=== PATIENT | female | born 1980 | race Caucasian/White ===

== ENCOUNTER 2018-09-07 07:34 | Inpatient (IN) | payer OTHER ==
[~2018-09-07] VITALS: Ht 162.6 cm; Wt 126.1 kg
[2018-09-07] VITALS (12 sets, daily range): BP systolic 102–152; BP diastolic 64–97
[~2018-09-07 07:34] MED LIST: Dexamethasone 4mg/ml vial IVP ONE; ceFAZolin sod 1 GM in NS 55 ML IVPB ONE
[2018-09-07] MEDS ORDERED: DULERA 200 MCG/13 GM IH (08:37)
[2018-09-07] MEDS ORDERED: ALBUTEROL SULF8.5 GM INH (08:37)
[2018-09-07] MEDS ORDERED: PREVACID30 MG ORAL (08:37)
[2018-09-07] MEDS ORDERED: Dexamethasone 20mg/5ml ONE (09:05)
[2018-09-07] MEDS ORDERED: LR 1000ml 1,000 ML IVLG SCH (09:18)
--- NOTE | 2018-09-07 09:24 | Pre-Procedure Note/Attestation ---
Pre-Procedure Note/Attestation Complete Prior to Procedure Planned Procedure: not applicable Procedure Narrative: C5-C6 ACDF Anterior Internal Plate Fixation Indications for Procedure Pre-Operative Diagnosis: Trauma radiculopathy HNP Attestation I attest that I discussed the nature of the procedure; its benefits; risks and complications; and alternatives (and the risks and benefits of such alternatives ), prior to the procedure, with the patient (or the patient's legal inside technical sales representative). I attest that, if there was a reasonable possibility of needing a blood transfusion, the patient (or the patient's legal inside technical sales representative) was given the [facility] standardized written summary, pursuant to the Tarik Nemo Blood Safety Act ([place] Health and Safety Code # 1645, as amended). I attest that I re-evaluated the patient just prior to the surgery and that there has been no change in the patient's H&P, except as documented below: Bala Ramsey MD Sep 07, 2018 09:24
[2018-09-07] MEDS ORDERED: Ketorolac 30mg Inj IV PRN ×2 (09:30)
[2018-09-07] MEDS ORDERED: LORazepam Inj 2mg/ml 1ml IV PRN (09:30)
[2018-09-07] MEDS ORDERED: fentaNYL 100 mcg/2 mL IV PRN (09:30)
[2018-09-07] MEDS ORDERED: Atropine Sulfate 0.4mg/ml inj IVP PRN (09:30)
[2018-09-07] MEDS ORDERED: Acetaminophen (Non formulary) 100 ML IV ONE (09:30)
[2018-09-07] MEDS ORDERED: Metoclopramide 10mg/2ml Inj IVP PRN (09:30)
[2018-09-07] MEDS ORDERED: Hydromorphone 0.5mg/0.5ml inj IVP PRN (09:30)
[2018-09-07] MEDS ORDERED: Norco 5mg/325mg tab ORAL PRN (09:30)
[2018-09-07] MEDS ORDERED: oxyCODONE HCL/Acetaminophen 5/325mg ORAL PRN (09:30)
[2018-09-07] MEDS ORDERED: HYDROcodone/Acetamin 7.5/325 tab ORAL PRN (09:30)
[2018-09-07] MEDS ORDERED: DiphenhydrAMINE 50mg/ml Inj IVP PRN (09:30)
[2018-09-07] MEDS ORDERED: Meperidine 50mg/ml Inj(FOR RIGORS ONLY) IVP PRN (09:30)
[2018-09-07] MEDS ORDERED: Midazolam 2mg/2ml Inj IVP PRN (09:30)
--- NOTE | 2018-09-07 09:32 | Anethesia Preoperative Eval ---
Anesthesia Pre-op PMH/ROS General Date of Evaluation: Sep 07, 2018 Time of Evaluation: 09:56 Anesthesiologist: Charbel ASA Score: ASA 3 Mallampati Score Class I : Soft palate, uvula, fauces, pillars visible Class II: Soft palate, uvula, fauces visible Class III: Soft palate, base of uvula visible Class IV: Only hard plate visible Mallampati Classification: Class III Surgeon: Braulio Diagnosis: Neck Pain Surgical Procedure: ACDF C5-6 Anesthesia History: none Family History: no anesthesia problems Allergies: Coded Allergies: ERYTHROMYCIN BASE (Verified Allergy, Severe, 09/07/18) SKIN RASH Medications: see eMAR Patient NPO?: Yes NPO Date: Sep 06, 2018 NPO Time: 1999 Past Medical History Pulmonary: Reports: asthma Gastrointestinal/Genitourinary: Reports: GERD Other: obesity - Morbid BMI 50 Anesthesia Pre-op Phys. Exam Physician Exam Last Vital Signs Date Time Temp Pulse Resp B/P (MAP) Pulse Ox O2 Delivery O2 Flow Rate FiO2 09/07/18 08:37 97.7 59 20 133/77 (95) 97 09/07/18 08:21 Room Air Constitutional: NAD Neurologic: CN 2-12 intact Cardiovascular: RRR Respiratory: CTA Gastrointestinal: S/NT/ND Airway Exam Mallampati Score: Class III MO: full ROM: limited Teeth: intact Anesthesia Pre-op A/P Labs Urine Test Test 09/07/18 07:50 Urine HCG, Qualitative Negative (NEGATIVE) Risk Assessment & Plan Assessment: ASA 3 Plan: GA, ESD, GlideScope Go Status Change Before Surgery: No Pre-Antibiotics Dru Grams Ancef IV Given Within 1 Hr of Incision: Yes Time Given: 10:21 Mckinley Coburn MD Sep 07, 2018 09:32
[2018-09-07] MEDS ORDERED: Sodium Chloride 10ml vial INJ ONE (09:33)
[2018-09-07] MEDS ORDERED: Lidocaine 1% MPF 10mg/ml 5ml ONE (09:33)
[2018-09-07] MEDS ORDERED: Lidocaine 1% Plain 30 ml INJ ONE (09:33)
[2018-09-07] MEDS ORDERED: fentaNYL 100 mcg/2 mL IV ONE ×2 (09:34→10:45)
[2018-09-07] MEDS ORDERED: Gelfoam Size TOPIC ONE (09:52)
[2018-09-07] MEDS ORDERED: Bacitracin 50000 Units Vial ONE (09:52)
[2018-09-07] MEDS ORDERED: Thrombin 5000 units TOPIC ONE (09:52)
[2018-09-07] MEDS ORDERED: Sterile Water Irrig 1000ml IRRIG ONE (10:00)
[2018-09-07] MEDS ORDERED: LR 1000ml ONE (10:00)
[2018-09-07] MEDS ORDERED: Propofol 1,000mg/ 100ml btl IV ONE (10:00)
[2018-09-07] MEDS ORDERED: NS Irrig 1000ml ONE (10:00)
--- NOTE | 2018-09-07 10:05 | 48 Hour Post Anesthesia Eval ---
Post Anesthesia Evaluation Procedure: ACDF C5-6 Date of Evaluation: Sep 07, 2018 Time of Evaluation: 15:34 Blood Pressure Systolic: 138 0: 64 Pulse Rate: 67 Respiratory Rate: 18 Temperature (Fahrenheit): 98.2 O2 Sat by Pulse Oximetry: 96 Airway: patent Nausea: No Vomiting: No Pain Intensity: 3 Hydration Status: adequate Cardiopulmonary Status: Stable Mental Status/LOC: patient returned to baseline Follow-up Care/Observations: 0 Post-Anesthesia Complications: 0 Follow-up care needed: ready to discharge Mckinley Coburn MD Sep 07, 2018 10:05
--- NOTE | 2018-09-07 10:05 | Immediate Post-Op Evaluation ---
Immediate Post-Op Evalulation Immediate Post-Op Evalulation Procedure: ACDF C5-6 Date of Evaluation: Sep 07, 2018 Time of Evaluation: 12:52 IV Fluids: 500 LR Blood Products: 0 Estimated Blood Loss: 25 Urinary Output: 0 Blood Pressure Systolic: 151 Blood Pressure Diastolic: 97 Pulse Rate: 95 Respiratory Rate: 16 O2 Sat by Pulse Oximetry: 99 Temperature (Fahrenheit): 97.2 Pain Score (1-10): 3 Nausea: No Vomiting: No Complications 0 Patient Status: awake, reacts, patent, extubated, none Hydration Status: adequate Dru Grams Ancef IV Given Within 1 Hr of Incision: Yes Time Given: 10:21 Mckinley Coburn MD Sep 07, 2018 10:05
[2018-09-07] MEDS ORDERED: Glycopyrrolate 0.2mg/ml 1ml Vial ONE (12:00)
[2018-09-07] MEDS ORDERED: Neostigmine 1mg/ml 10ml Inj ONE (12:00)
[2018-09-07] MEDS ORDERED: Dexamethasone 4mg/ml vial ONE (12:00)
--- NOTE | 2018-09-07 13:48 | Diagnostic Imaging Report ---
INDICATION: Pain, intraoperative TECHNIQUE: Intraoperative imaging during cervical fusion procedure Fluoroscopy time: 25 seconds Total dose: 6.25 mGy Total number of images: 4 COMPARISON: None FINDINGS: 6 intraoperative images demonstrate surgical tool at the anterior aspect of the C5-6 disc. Subsequent images document anterior fusion hardware and disc spacers bridging C5 and C6 IMPRESSION: Intraoperative imaging, as described
[2018-09-07] MEDS ORDERED: Chloraseptic Spray 20mL Bottle ORAL ONE (14:17)
[2018-09-07] MEDS ORDERED: HYDROcodone/Acetamin 10/325 tab ORAL PRN (14:30)
[2018-09-07] MEDS ORDERED: HYDROmorphone 1mg/ml Carpuject SUBQ PRN ×2 (14:30→14:45)
[2018-09-07] MEDS ORDERED: Chloraseptic Spray 20mL Bottle ORAL PRN (14:30)
[2018-09-07] MEDS ORDERED: D5 1/2NS 1,000 ML IV SCH (14:40)
[2018-09-07] MEDS ORDERED: Tylenol #3 tab (300mg/30mg) ORAL PRN (14:45)
[2018-09-07] MEDS ORDERED: Albuterol/Ipratropium 3ml neb HHN PRN (14:45)
[2018-09-07] MEDS ORDERED: TransDerm Scop 1mg/72HR Patch TDERMAL SCH (14:46)
[2018-09-07] MEDS ORDERED: Tylenol #3 tab (300mg/30mg) ORAL SCH (14:46)
[2018-09-07] MEDS ORDERED: ceFAZolin sod 1 GM in D5W 55 ML IV SCH (18:30)
[2018-09-07] MEDS ORDERED: Albuterol/Ipratropium 3ml neb HHN SCH (19:00)
[2018-09-07] MEDS ORDERED: Albuterol ud Inhalation HHN SCH (19:00)
[2018-09-07] MEDS ORDERED: Tubing IV Secondary IV ONE (19:15)
--- NOTE | 2018-09-07 21:00 | Operative Note - Dictated ---
DATE OF OPERATION: 09/07/2018 PRIMARY SURGEON: Bala Ramsey, Ph.D., M.D. SENIOR BUSINESS DEVELOPMENT MANAGER: VIVIANE Gutierrez. ANESTHESIOLOGIST: Mckinley Coburn M.D. ANESTHESIA: General with intubation. ADMITTING/POSTOPERATIVE DIAGNOSES: Posttraumatic cervical herniated nucleus polyposis, radiculopathy, neurologic deficit. POSTOPERATIVE DIAGNOSES: Posttraumatic cervical herniated nucleus polyposis, radiculopathy, neurologic deficit. OPERATIVE PROCEDURE: Anterior cervical diskectomy with fusion C5-C6. The patient's body habitus greater than 95th percentile for height increasing complexity of surgery. Interbody device placement with osteopromotive material with autograft C5-C6. Anterior internal plate fixation C5-C6. High-powered magnification dissection. SSEP monitoring. Intraoperative fluoroscopy interpreted by surgeon. DESCRIPTION OF PROCEDURE: The patient was brought to the operating room and in the supine position, general anesthesia with intubation was induced. IV antibiotics and IV Decadron were administered 30 minutes prior to incision time. Anterior cervical spine was sterilely prepped and draped free in usual sterile fashion. A transverse left anterior cervical incision was sharply placed in the dermis and epidermis. Electrocautery dissection was carried through the subcutaneous tissue to the level of the platysmas muscle was identified, isolated, and transected inline with the incision. Blunt dissection under high-power magnification was taken through the deep cervical and pretracheal fascia medial to the sternocleidomastoid left muscle as well as the left carotid sheath. Midline identified. Osteophyte identified. Spinal needle bent at 90-degree angle so as to avoid penetration greater than 3 mm in the disc space was placed into the disk space under high-power magnification direct observation. Cross-table imaging was obtained with determination of level as correct at C5-C6. Interval was marked. Needle removed. Longus colli muscle subperiosteally elevated medial lateral not exceeding 3 mm in the mediolateral extent. Retractors placed. Anterior osteophyte was resected under high-power magnification with Midas Al bur dissection. Annulotomy was performed. Utilizing high-speed Midas Al bur dissection, the end plates were denuded of cartilaginous covering to bleeding intact subchondral bone. Dissection was carried to the posterior longitudinal ligament that was resected. No dural tears or leaks at anytime during the procedure. Foraminotomy was carried. Wound irrigated with antibiotic-containing saline. Interpositional grafting with a Tritanium graft containing osteopromotive material with autograft. Midline determined from trial utilization as well as depth by lateral radiographs. The graft was tamped into position. Countersunk 1 mm. SSEP monitoring stable at all times. Of note is that the introducer for the graft has a stop precluding the graft moving more than 1 mm posterior to the anterior cord to see of the vertebral body. All traction on the neck was removed (10 pounds). Exploration revealed no obvious excoriation or laceration of vital structures. Anterior internal plate fixation with 15 mm screws cephalad caudad in a compressive fashion was undertaken under high-power magnification. AP and lateral radiographs recorded demonstrating excellent alignment position and correct level. Wound was irrigated with antibiotic-containing saline. Exploration revealed no obvious excoriation or laceration of vital structures. FloSeal applied. Reapproximation of platysmas muscle with simple interrupted sutures. Subcuticular reapproximation of dermis and epidermis. Transverse surgical strips followed with application of sterile bandage maintained in place with tape. The patient was awakened, extubated in the operating room, and transported to postop recovery in good stable condition. Bala Ramsey M.D. DR: BROOKE JOB#: [id number] CC: KIM
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
--- NOTE | 2018-09-08 13:43 | Discharge Summary ---
Discharge Summary Discharge Summary _ DATE OF ADMISSION: 09/07/2018 DATE OF DISCHARGE: 09/07/2018 CONSULTANTS: Dr. Jose Quick BRIEF HOSPITAL COURSE: Patient is a 38-year-old female, was admitted and underwent ACDF C5-C6. She tolerated procedure well. Surgery was uneventful. Post-operatively, patient was admitted for post-op care. She was placed on SCDs for DVT prophylaxis and was encouraged use of incentive spirometer. Patient was given pain management. Patient was seen by PT and OT. Diet was advanced. Incision was clean, dry and intact. Patient was ambulating well with good pain control and tolerating diet. She was eventually cleared for discharge home. FINAL DIAGNOSES: POSTOPERATIVE DIAGNOSES: Posttraumatic cervical herniated nucleus pulposus, radiculopathy, neurologic deficit. OPERATIVE PROCEDURES: Anterior cervical diskectomy with fusion C5-C6. DISPOSITION: Patient was discharged home. DISCHARGE INSTRUCTIONS: Follow-up in 1-2 weeks. DISCHARGE MEDICATIONS: Refer to Discharge Medication List. I have been assigned to dictate discharge summary on this account, and I was not involved in the patient's management. Shelby Padilla NP Sep 08, 2018 13:43
== END 2018-09-07 19:16 | disposition home or self-care (01) | DRG 473 ==
LOC: SUR 07:34 → 3E 14:34
PROC: 0RB30ZZ Excision of Cervical Vertebral Disc, Open Approach (ICD-10-PCS; principal; 2018-09-07 09:00)
PROC: 0RG10A0 Fusion of Cervical Vertebral Joint with Interbody Fusion Device, Anterior Approach, Anterior Column, Open Approach (ICD-10-PCS; principal; 2018-09-07 09:00)
DX: M50.122 Cervical disc disorder at C5-C6 level with radiculopathy (principal); M48.02 Spinal stenosis, cervical region; V89.2XXS Person injured in unspecified motor-vehicle accident, traffic, sequela; J45.909 Unspecified asthma, uncomplicated; E66.01 Morbid (severe) obesity due to excess calories; Z88.3 Allergy status to other anti-infective agents; Z88.8 Allergy status to other drugs, medicaments and biological substances; Z87.891 Personal history of nicotine dependence; Z88.6 Allergy status to analgesic agent; R03.0 Elevated blood-pressure reading, without diagnosis of hypertension
CPT/HCPCS: 36415; 72040; 76001; 81025; 86850; 86900; 86901; 87081; 94003; 94150; J2405; J2710